=== PATIENT | female | born 1935 | race Caucasian/White ===

== ENCOUNTER 2016-11-08 20:57 | Emergency (ER) | payer MEDICARE ==
[2016-11-08 21:05] VITALS: RESP 18
[2016-11-08] MEDS ORDERED: DIPH,PERTUS(ACELL)TETVAC-LF 0.5 ML VIAL IM ONE (21:33)
--- NOTE | 2016-11-08 21:40 | ED ---
Fall HPI - General Chief Complaint: Fall Stated Complaint: Fall/Lac/ Hip Pain Time Seen by Provider: 11/08/16 21:11 Source: patient, RN notes reviewed Mode of arrival: wheelchair - History of Present Illness Initial Comments: Patient is a 81-year-old female presents to the emergency room for evaluation of fall injury. Patient states a few hours ago she tripped over a vine catching herself with her knees and her hands. Patient states she has laceration over her left hand. Patient states having 7 out of 10 pain. Patient states she's not sure last tetanus vaccine was. Patient also states after the fall she began having right hip pain. 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 Patient states the pain is on the lateral portion of her hip and over her right buttocks. Patient states she still able to get up and walk with assistance. Patient denies head trauma or loss of consciousness. Patient's daughter is present with patient. Patient's daughter also states that patient had a fall incident on Saturday. Patient states that she was stretching to get ready to go for a walk and lost her balance and fell over into her flower bed. Patient states she did hit the back of her head. Patient denies loss of consciousness. Patient denies neck pain, nausea, vomiting. Patient states she still the small lump on the left back of her head. Patient denies taking blood thinners. Patient's daughter states that patient has also been complaining of burning during urination throughout the past 2 weeks. Patient's daughter states giving patient [id number] Azo. Patient states her symptoms have been improving since she has been taking it. Patient denies fevers or chills. Patient denies nausea or vomiting. Patient denies chest pain or shortness of breath. Patient denies any other complaints at this time. - Related Data Home Medications Medication Instructions Recorded Confirmed Albuterol Nebulized [Ventolin 2.5 mg INHALATION RT-DAILY PRN 10/17/14 11/08/16 Nebulized] Fluticasone/Salmeterol [Advair 2 puff INHALATION RT-DAILY PRN 10/17/14 11/08/16 250-50 Diskus] Levothyroxine Sodium [Synthroid] 1 tab PO DAILY 10/17/14 11/08/16 Montelukast [Singulair] 10 mg PO DAILY 10/17/14 11/08/16 Calcium Citrate/Vitamin D3 1 tab PO DAILY 11/08/16 11/08/16 [Calcitrate + Vit D Caplet] Cranberry Fruit Concentrate [Azo 250 mg PO DAILY PRN 11/08/16 11/08/16 Cranberry] Ibandronate Sodium [Boniva] 150 mg PO Q30D 11/08/16 11/08/16 Multivitamins, Thera [Multivitamin 1 tab PO DAILY 11/08/16 11/08/16 (formulary)] [place]-3/Dha/Epa/Fish Oil [Fish Oil 1 cap PO DAILY 11/08/16 11/08/16 500 mg Softgel] Simvastatin [Zocor] 80 mg PO DAILY 11/08/16 11/08/16 Previous Rx's Medication Instructions Recorded HYDROcodone/APAP 5-325MG [[place] 1 tab PO Q6HR PRN #5 tab 11/08/16 5-325] Allergies Allergy/AdvReac Type Severity Reaction Status Date / Time latex AdvReac Rash/Hives Verified 11/08/16 22:02 Penicillins AdvReac Rash/Hives Verified 11/08/16 22:02 Sulfa (Sulfonamide AdvReac Rash/Hives Verified 11/08/16 22:02 Antibiotics) tree nut [Nut] AdvReac Rash/Hives Verified 11/08/16 22:02 Review of Systems ROS Statement: Those systems with pertinent positive or pertinent negative responses have been documented in the HPI. ROS Other: All systems not noted in ROS Statement are negative. Past Medical History Past Medical History: Hyperlipidemia, Thyroid Disorder History of Any Multi-Drug Resistant Organisms: None Reported Past Surgical History: Hysterectomy, Orthopedic Surgery Additional Past Surgical History / Comment(s): Right Hip replacement. Past Psychological History: No Psychological Hx Reported Smoking Status: Former smoker Past Alcohol Use History: None Reported Past Drug Use History: None Reported General Exam - General Exam Comments Initial Comments: sitting in exam room, no acute distress. Limitations: no limitations General appearance: alert, in no apparent distress Head exam: Present: atraumatic, normocephalic, normal inspection Eye exam: Present: normal appearance, PERRL, EOMI Pupils: Present: normal accommodation ENT exam: Present: normal exam Neck exam: Present: normal inspection, full ROM. Absent: tenderness, lymphadenopathy Respiratory exam: Present: normal lung sounds bilaterally. Absent: respiratory distress Cardiovascular Exam: Present: regular rate, normal rhythm, normal heart sounds Left Hand Wrist exam: Present: full ROM, laceration (2 cm laceration over the thenar eminence of the left hand.). Absent: tenderness Neuro motor exam: Present: wrist extension intact, thumb opposition intact, thumb IP flexion intact, thumb adduction intact, fingers 2-5 abduction intact Vascular: Present: normal capillary refill (capillary refill less than 2 seconds ), radial pulse (2+), ulnar pulse (2+) Right Hip exam: Present: normal inspection, full ROM, tenderness (tenderness on palpating over the lateral hip joint), external rotation, internal rotation. Absent: swelling, shortening Upper Leg exam: Present: normal inspection, full ROM. Absent: tenderness Knee exam: Present: abrasion Neurovascular tendon exam: Present: no vascular compromise. Absent: pulse deficit (2+ dorsal pedal and posterior tibial pulses), abnormal cap refill ( capillary refill is 2 seconds) Back exam: Present: normal inspection Neurological exam: Present: alert, oriented X3, CN II-XII intact Psychiatric exam: Present: normal affect, normal mood Skin exam: Present: warm, dry. Absent: rash Course Vital Signs 11/08/16 11/08/16 11/09/16 21:01 23:08 00:18 Temperature 97.1 F L 97.5 F L 97.5 F L Pulse Rate 80 76 76 Respiratory 18 18 18 Rate Blood Pressure 128/86 160/70 160/70 O2 Sat by Pulse 93 L 94 L 94 L Oximetry Procedures - Laceration Laceration #1 Consent Obtained: verbal consent Indication: laceration Site: other (left hand) Size (cm): 3 Description: linear Depth: simple, single layer Anesthetic Used: lidocaine 1% Anesthesia Technique: local infiltration Amount (mls): 2 Pre-repair: wound explored, irrigated extensively Type of Sutures: nylon Size of Sutures: 5-0 Number of Sutures: 6 Technique: simple, interrupted Patient Tolerated Procedure: well, no complications Medical Decision Making - Medical Decision Making Patient is a 81-year-old female since emergency room for evaluation of fall injury. Left hand laceration repaired sutures. Patient updated on her tetanus vaccine. Right hip/pelvis x-ray negative for any acute fractures or dislocations. Brain CT negative for any acute findings. Urinalysis negative for urinary tract infection. Patient advised to follow-up with primary care provider for reevaluation in 24-48 hours. Patient states she understands everything that was discussed with her. Return parameters discussed. Case discussed with Dr. Hansen. - Lab Data Lab Results 11/08/16 Range/Units 21:42 Urine Color Yellow Urine Appearance Cloudy H (Clear) Urine pH 6.5 (5.0-8.0) Ur Specific [place] 1.021 (1.001-1.035) Urine Protein Negative (Negative) Urine Glucose (UA) Negative (Negative) Urine Ketones Negative (Negative) Urine Blood Negative (Negative) Urine Nitrite Negative (Negative) Urine Bilirubin Negative (Negative) Urine Urobilinogen <2.0 (<2.0) mg/dL Ur Leukocyte Esterase Negative (Negative) Urine RBC <1 (0-5) /hpf Urine WBC 1 (0-5) /hpf Ur Squamous Epith Cells <1 (0-4) /hpf Amorphous Sediment Rare H (None) /hpf Urine Mucus Rare H (None) /hpf - Radiology Data Radiology results: report reviewed, image reviewed Disposition Clinical Impression: Fall, Contusion of right hip, Hand laceration Disposition: HOME SELF-CARE Condition: Good Instructions: Care For Your Stitches (ED), Laceration (ED), Fall Prevention for Older Adults (ED) Additional Instructions: Take ibuprofen as needed for pain. Take [place] as needed for severe pain. Do not soak the suture area in water. Clean suture area with a damp cloth. Please return in 7-10 days for suture removal. Please follow up with primary care provider in 1-2 days. If any new symptom arises or symptoms worsen, return to ER as soon as possible. Prescriptions: HYDROcodone/APAP 5-325MG [[place] 5-325] 1 tab PO Q6HR PRN #5 tab PRN Reason: Pain Referrals: Vera hSine DO [Primary Care Provider] - 1-2 days Time of Disposition: 23:48
[2016-11-08 22:01] LABS: Amorphous Sediment,Urine Rare /hpf; Appearance,Urine Cloudy (Clear); Bilirubin,Urine Negative (Negative); Glucose,Urine (UA) Negative (Negative); Ketones,Urine Negative (Negative); Leukocyte Esterase,Urine Negative (Negative); Mucus,Urine Rare /hpf; Nitrite,Urine Negative (Negative); PH, Urine 6.5 (5.0-8.0); Particle Count 2804; Protein,Urine Negative (Negative); RBC,Urine <1 /hpf (0-5); Specific Gravity,Urine 1.021 (1.001-1.035); Squamous Epithelial Cell,Urine <1 /hpf (0-4); UA Billing (MACRO vs. MICRO) MICRO; Urobilinogen,Urine <2.0 mg/dL (<2.0); WBC,Urine 1 /hpf (0-5)
--- NOTE | 2016-11-08 22:35 | CT ---
EXAM: CT Head Without Intravenous Contrast CLINICAL HISTORY: Pain TECHNIQUE: Axial computed tomography images of the head/brain without intravenous contrast. CTDI is 60.30 mGy and DLP is 954.5 mGy-cm. This CT exam was performed using one or more of the following dose reduction techniques: automated exposure control, adjustment of the mA and/or kV according to patient size, and/or use of iterative reconstruction technique. COMPARISON: No relevant prior studies available. FINDINGS: Brain: Chronic small vessel ischemic disease and senescent changes. No acute infarct, hemorrhage, mass or edema. Ventricles: Unremarkable. No ventriculomegaly. Bones/joints: Unremarkable. No acute fracture. Soft tissues: Unremarkable. Sinuses: Unremarkable as visualized. No acute sinusitis. Mastoid air cells: Unremarkable as visualized. No mastoid effusion. IMPRESSION: No acute findings. EXAM: CT Cervical Spine Without Intravenous Contrast CLINICAL HISTORY: Pain TECHNIQUE: Axial computed tomography images of the cervical spine without intravenous contrast. CTDI is 16.80 mGy and DLP is 328.30 mGy-cm. This CT exam was performed using one or more of the following dose reduction techniques: automated exposure control, adjustment of the mA and/or kV according to patient size, and/or use of iterative reconstruction technique. COMPARISON: No relevant prior studies available. FINDINGS: Vertebrae: No acute fracture. No traumatic malalignment. Discs/spinal canal/neural foramina: Multilevel degenerative changes. No spinal canal stenosis. Soft tissues: Unremarkable. Lung apices: Visualized lung apices demonstrates biapical pleural parenchymal scarring. IMPRESSION: No acute findings.
--- NOTE | 2016-11-08 22:48 | XR ---
EXAM: XR Right Hip With Pelvis When Performed, 1 View CLINICAL HISTORY: Pain TECHNIQUE: Frontal view of the right hip, with pelvis when performed. COMPARISON: Right hip x-ray dated 10/17/2014 FINDINGS: Bones/joints: No acute fracture or traumatic malalignment. Evidence of revision of the total right hip arthroplasty as compared to the prior. No acute fracture identified. Degenerative changes of the lumbar spine and left hip. Soft tissues: Unremarkable. IMPRESSION: 1. No acute fracture or traumatic malalignment. 2. Evidence of revision of the total right hip arthroplasty as compared to the prior. No acute fracture identified.
[2016-11-08 23:09] VITALS: BP 160/70; PULSE 76; TEMP 97.5
[2016-11-08] MEDS ORDERED: HYDROcodone/APAP 5-325MG 1 EACH TAB PO STA (23:11)
== END 2016-11-09 00:25 | disposition home or self-care (01) ==
LOC: EC 20:57
DX: S61.412A Laceration without foreign body of left hand, initial encounter (principal); S70.01XA Contusion of right hip, initial encounter; S80.219A Abrasion, unspecified knee, initial encounter; R22.0 Localized swelling, mass and lump, head; R30.0 Dysuria; E78.5 Hyperlipidemia, unspecified; E07.9 Disorder of thyroid, unspecified; Z87.891 Personal history of nicotine dependence; Z79.899 Other long term (current) drug therapy; Z88.0 Allergy status to penicillin; Z88.2 Allergy status to sulfonamides; Z91.018 Allergy to other foods; Z91.040 Latex allergy status; Z96.641 Presence of right artificial hip joint; Z23 Encounter for immunization; W18.09XA Striking against other object with subsequent fall, initial encounter; Y93.01 Activity, walking, marching and hiking
CPT/HCPCS: 12002; 70450; 72125; 73502; 81001; 90471; 90715; 99284

== ENCOUNTER → 2016-12-08 | Outpatient (CLI) | payer MEDICARE ==
--- NOTE | 2016-12-08 12:42 | MR ---
EXAMINATION TYPE: MR hip RT wo con DATE OF EXAM: 12/08/2016 12:32 PM COMPARISON: NONE HISTORY: LBP, rt hip pain S/P fall 1 mo ago TECHNIQUE: Multiplanar, multiecho imaging of the right hip is performed without IV contrast. FINDINGS: There is a right hip arthroplasty in place. This is causing severe geometric distortion thr ough the region of interest. The examination is nondiagnostic for the right hip. There is mild joint space loss involving the left hip. There is no evidence of avascular necrosis. No acute osseous lesion is seen. IMPRESSION: 1. THIS EXAMINATION IS NONDIAGNOSTIC IN THE REGION OF THE RIGHT HIP DUE TO GEOMETRIC DISTORTION FROM THE PATIENT'S RIGHT HIP ARTHROPLASTY. 2. EVIDENCE OF OSTEOARTHRITIS IN THE LEFT HIP.
--- NOTE | 2016-12-08 12:53 | MR ---
MR lumbar spine wo con LBP, rt hip pain S/P fall 1 mo ago Multiplanar, multiecho imaging of the lumbar spine was obtained without contrast on a 3 Juanita magnet. REFERENCE: Previous study dated 03/29/2014. FINDINGS: There is atrophy of the right iliopsoas complex as well as the right paraspinal musculatur e. Paraspinal soft tissues are otherwise unremarkable. There is a mild retrograde listhesis of L2 on L3. This is unchanged from previous. The remainder of t he vertebral body height and alignment are maintained. Cord signal is maintained. The conus ends normally at the level of the mid body of L1. At T12-L1, there is mild facet arthropathy. At L1-2, there is disc space loss. There is mild, bilateral intervertebral foraminal narrowing. There is a bilobed disc displacement. There are hypertrophic changes within the facets. There is mild tref oiling of the thecal sac. At L2-3, there is severe disc space loss. There is a mild retrograde listhesis. There is hypertrophic spondylosis both anteriorly and posteriorly. There is bilateral intervertebral foraminal narrowing. There is a diffuse disc displacement slightly eccentric towards the left. There is a left paracentral disc endplate complex which is mildly deforming the thecal sac and causing mild lateral recess steno sis on the left. There is capsulitis within the facets. At L3-4, there is disc space loss. There is mild, bilateral intervertebral foraminal narrowing. There is a broad-based disc endplate complex effacing the thecal sac. There are hypertrophic changes and c apsulitis in the facets. There is mild trefoiling of the thecal sac. At L4-5, there is severe disc space loss. There is bilateral intervertebral foraminal narrowing there hypertrophic changes in the facets. There is a diffuse disc displacement. There is mild trefoiling o f the thecal sac. At L5-S1, there is disc space loss. There is a diffuse disc displacement. This hypertrophic changes a nd capsulitis within the facets. There is mild right-sided intervertebral foraminal narrowing. IMPRESSION: 1. DIFFUSE DEGENERATIVE DISC DISEASE AND FACET ARTHROPATHY. 2. MULTILEVEL INTERVERTEBRAL FORAMINAL NARROWING. 3. MILD LATERAL RECESS STENOSIS ON THE LEFT, L2-3.
== END | disposition home or self-care (01) ==
LOC: RADMRIMAIN 11:26
PROVIDERS: ATTEND Nurse Practitioner Family
DX: M48.06 Spinal stenosis, lumbar region (principal); M99.73 Connective tissue and disc stenosis of intervertebral foramina of lumbar region; M51.16 Intervertebral disc disorders with radiculopathy, lumbar region; M46.96 Unspecified inflammatory spondylopathy, lumbar region; M16.12 Unilateral primary osteoarthritis, left hip; Z96.651 Presence of right artificial knee joint
CPT/HCPCS: 72148

== ENCOUNTER → 2017-01-30 | Outpatient (CLI) | payer MEDICARE ==
--- NOTE | 2017-01-31 09:45 | MM ---
Reason for exam: screening (asymptomatic). Last mammogram was performed 1 year and 3 months ago. History: Patient is postmenopausal. Took estrogen for 10 years beginning at age 56. Physical Findings: A clinical breast exam by your physician is recommended on an annual basis and results should be correlated with mammographic findings. MG 3D Screening Mammo W/Cad Bilateral CC and MLO view(s) were taken. Prior study comparison: November 14, 2015, bilateral MG screening mammo w CAD. November 04, 2014, bilateral MG screening mammo w CAD. There are scattered fibroglandular densities. No suspicious abnormality. ASSESSMENT: Negative, BI-RAD 1 RECOMMENDATION: Routine screening mammogram of both breasts in 1 year.
== END | disposition home or self-care (01) ==
LOC: RADMAMWWP 09:45
PROVIDERS: ATTEND Family Medicine
DX: Z12.31 Encounter for screening mammogram for malignant neoplasm of breast (principal)
CPT/HCPCS: 77063; G0202

== ENCOUNTER 2017-05-21 06:50 | Day surgery (SDC) | payer MEDICARE ==
[2017-05-14 15:20] VITALS: BMI 27.3
[2017-05-21 07:25] VITALS: RESP 16; TEMP 97.6
[2017-05-21] MEDS ORDERED: LACTATED RINGERS 1,000 ML IV ONE (07:35)
[2017-05-21] MEDS ORDERED: LIDOCAINE 1% 20 ML VIAL (10MG/ML) FOR IV START INTRADERMA ONE (07:36)
[2017-05-21] MEDS ORDERED: LACTATED RINGERS 1,000 ML IV SCH (07:45)
--- NOTE | 2017-05-21 08:02 | P.PCN ---
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 PROCEDURE DESCRIPTION: Patient presents for RIGHT SIDE ONLY L3-L4, L4-L5 and L5- S1 diagnostic medial branch blocks #2 under fluoroscopic guidance after one week 's worth of excellent relief from first procedure. The procedure is performed using fluoroscopic guidance during needle placement to assure proper position and maximize safety. ANESTHESIA: Local with 1% lidocaine; conscious sedation with Versed EBL: Minimal PROCEDURE INDICATION: Patient with lumbar facet arthropathy signs and symptoms and pain in right buttock, here for RIGHT diagnostic medial branch block #1. Pt does not take any blood thinning medications. PROCEDURE DESCRIPTION: The patient was seen and identified in the preoperative area. Risks, benefits, complications, and alternatives were discussed with the patient (including but not limited to incomplete pain relief, bleeding, infection, nerve damage, and allergies to medications), the patient agreed to proceed with the procedure and signed the consent after all questions were answered. Patient was taken to the OR and time out was completed to verify proper patient, position, laterality of pain, and allergies. Pt was placed in the prone position and a pillow was placed under the abdomen to reduce lumbar lordosis. The lumbosacral area was prepped and draped in the usual sterile fashion. Using oblique fluoroscopy, the eye of the "Donato dog" of right L4 vertebral body, which corresponds to the path of the medial branch originating from the level above, which is L3 in this case, was identified. Subsequently, a 22-gauge 3.5-inch spinal needle was inserted under fluoroscopic guidance toward the eye of the "Donato dog" of the right L4 vertebral body, corresponding to the junction of the superior articular process and the transverse process of the pedicle of the same level. After needle tip confirmation on lateral view and after negative aspiration for CSF and blood and without paresthesias, 1 mL of a 3 ml solution of 0.5% preservative-free bupivacaine and 40 mg Kenalog was injected. Subsequently the needle was withdrawn intact and the same procedure was repeated for the right L4, right L5 medial branches which together with right L3 medial branch correspond to the sensory innervation of the right L3-L4, L4-L5 , and L5-S1 facet joints. Needle was withdrawn intact after each injection. At the end of the procedure, the skin was cleansed and bandages were applied. COMPLICATIONS: None. DISPOSITION/PLAN: The patient taken to the recovery area after the procedure in a stable condition for observation. Patient was reexamined prior to discharge and there were no issues and she already had significant relief. Patient was discharged home, accompanied by an adult, after meeting discharged criteria. Discharge instructions were give to the patient by the staff. Patient was specifically instructed not to drive today and to rest for the rest of the day. We will plan for right lumbar RFA next visit.
[2017-05-21] MEDS ORDERED: IV FLUID CONTINUATION 1,000 ML IV ONE (08:15)
[2017-05-21 08:37] VITALS: BP 152/70; PULSE 69
--- NOTE | 2017-05-21 11:20 | FL ---
Fluoroscopy HISTORY: Pain 10 seconds fluoroscopy time supplied to the referring clinician. 2 intraoperative C-arm images docum ent the procedure. See dictated report from anesthesia.
== END 2017-05-21 08:50 | disposition home or self-care (01) ==
LOC: ORPAIN 06:50
PROVIDERS: ATTEND Anesthesiology
DX: M47.816 Spondylosis without myelopathy or radiculopathy, lumbar region (principal); I10 Essential (primary) hypertension; J45.909 Unspecified asthma, uncomplicated; M81.0 Age-related osteoporosis without current pathological fracture; Z88.0 Allergy status to penicillin; Z88.2 Allergy status to sulfonamides; Z91.040 Latex allergy status; Z91.018 Allergy to other foods; Z88.5 Allergy status to narcotic agent
CPT/HCPCS: 64493; 64494; 64495; J2250; J3301

== ENCOUNTER 2017-06-18 07:20 | Day surgery (SDC) | payer MEDICARE ==
[2017-06-10 15:57] VITALS: BMI 27.3
[2017-06-18 07:37] VITALS: RESP 16; TEMP 98.6
[2017-06-18] MEDS ORDERED: LACTATED RINGERS 1,000 ML IV ONE (07:41)
[2017-06-18] MEDS ORDERED: LIDOCAINE 1% 20 ML VIAL (10MG/ML) FOR IV START INTRADERMA ONE (07:42)
[2017-06-18] MEDS ORDERED: LACTATED RINGERS 1,000 ML IV SCH (07:45)
--- NOTE | 2017-06-18 08:41 | P.PCN ---
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 ANESTHESIA: 1% lidocaine plain; Conscious sedation with versed/fentanyl EBL: Minimal PROCEDURE INDICATION: The patient with low back pain secondary to lumbar arthropathy who had more than 50% relief of pain with previous diagnostic lumbar medial branch block with bupivacaine. Patient presents for right lumbar RFA today; no use of blood thinners. PROCEDURE DESCRIPTION / TECHNIQUE: The patient was seen and identified in the preoperative area. Risks, benefits, complications, and alternatives were discussed with the patient (including but not limited to incomplete pain relief , bleeding, infection, nerve damage, and allergies to medications), the patient agreed to proceed with the procedure and signed the consent after all questions were answered. Patient was taken to the OR and time out was completed to verify proper patient , position, laterality of pain, and allergies. Pt was placed in the prone position. IV was started. Vital signs remained stable throughout the procedure. A pillow was placed under the patients chest to decrease lordosis. The lumbosacral area was prepped and draped in the usual sterile fashion. Vital signs were closely monitored during the procedure. Conscious sedation was used during the procedure to decrease patients anxiety. Using AP and then oblique fluoroscopy, the eye of the Donato dog corresponding to the connection between the superior and transverse articular processes of right L3, L4, L5 and top of the sacrum were identified, marked, and localized with 1% lidocaine. Subsequently, a 18 gauge, 100-mm radiofrequency cannula with a 10-mm active tip was advanced guided by fluoroscopy to each of the eyes of the Donato dog at the levels of all four medial branches. Each site then underwent sensory testing at 50 Hz and 0 to 1 volt and motor testing at 2 Hz and 0 to 3 volt with local stimulation, but no radicular symptoms down the legs. Thereafter all four medial branch sites underwent radiofrequency thermocoagulation at 80 degrees Celsius for 90 seconds after injecting 0.5 ml of PF lidocaine 1%. After thermocoagulation, 1 ml of the block solution containing Kenalog 40 mg and 2 mL of preservative-free normal saline was injected at all four medial branch levels after negative aspiration of CSF and blood and with no paresthesias. Cannulas were retracted while injecting lidocaine 1% until the needles were removed. At the end of the procedure, the skin was cleansed and bandages were applied. COMPLICATIONS: No acute complications. DISPOSITION / PLANS: The patient was placed in a supine position and transferred to the recovery area in a stable condition for observation and was discharged from the recovery room after meeting discharge criteria. Home discharge instructions given to the patient by the staff. The patient was reexamined prior to discharge and there were no issues. The patient will schedule a follow up in the clinic in 2-4 weeks.
[2017-06-18] MEDS ORDERED: IV FLUID CONTINUATION 1,000 ML IV ONE (08:46)
[2017-06-18 09:05] VITALS: BP 127/67; PULSE 70
--- NOTE | 2017-06-18 10:01 | FL ---
Fluoroscopy HISTORY: Pain 15 seconds fluoroscopy time supplied to the referring clinician. 3 intraoperative C-arm images docum ent the procedure. See dictated report from anesthesia.
== END 2017-06-18 09:28 | disposition home or self-care (01) ==
LOC: ORPAIN 07:20
PROVIDERS: ATTEND Anesthesiology
DX: M47.816 Spondylosis without myelopathy or radiculopathy, lumbar region (principal); I10 Essential (primary) hypertension; J45.909 Unspecified asthma, uncomplicated; M81.0 Age-related osteoporosis without current pathological fracture; Z88.0 Allergy status to penicillin; Z88.2 Allergy status to sulfonamides; Z91.040 Latex allergy status; Z88.5 Allergy status to narcotic agent
CPT/HCPCS: 64635; 64636 ×2; J2250; J3301; J3010; 99152

== ENCOUNTER → 2017-09-04 | Outpatient (CLI) | payer MEDICARE ==
--- NOTE | 2017-09-04 20:01 | CT ---
EXAMINATION TYPE: CT chest wo con DATE OF EXAM: 09/04/2017 COMPARISON: 09/25/2011 HISTORY: Abnormal CXR per patient CT DLP: 242.8 mGycm. Automated Exposure Control for Dose Reduction was Utilized. TECHNIQUE: CT scan of the thorax is performed without IV contrast. FINDINGS: LUNGS: The lungs are grossly clear, there is no concerning parenchymal mass or nodule identified. T here is no pleural effusion or pneumothorax seen. The tracheobronchial tree is patent. There is a ca lcified nodule within the right upper lobe image 25. Measures 4 mm. Additional subpleural nodule righ t apex measuring 2 mm. Subsegmental areas of consolidation bilaterally are most typical atelectasis. Additional 2 mm nodule right lower lobe image 45 and 52. MEDIASTINUM: Lack of IV contrast is noted to limit evaluation for mediastinal and especially hilar ad enopathy. There are no definitive greater than 1 cm hilar or mediastinal lymph nodes. Heart is enlarg ed. No sizable pericardial effusion. Mild coronary artery calcification. OTHER: Large gallstone incidentally noted. Hypertrophic and degenerative changes of the spine are no jonathan. IMPRESSION: 1. There multiple less than 5 mm pulmonary nodules one of which is calcified and compatible with gran uloma. Other 2 are too small to characterize but likely present on the previous exam of 2011. 2. Large gallstone.
== END | disposition home or self-care (01) ==
LOC: RADCTMAIN 18:22
PROVIDERS: ATTEND Family Medicine
DX: R91.8 Other nonspecific abnormal finding of lung field (principal)
CPT/HCPCS: 71250

== ENCOUNTER → 2018-02-07 | Outpatient (CLI) | payer MEDICARE ==
--- NOTE | 2018-02-10 10:18 | MM ---
Reason for exam: screening (asymptomatic). Last mammogram was performed 1 year ago. History: Patient is postmenopausal. Took estrogen for 10 years beginning at age 56. Physical Findings: A clinical breast exam by your physician is recommended on an annual basis and results should be correlated with mammographic findings. MG 3D Screening Mammo W/Cad Bilateral CC and MLO view(s) were taken. Prior study comparison: January 30, 2017, bilateral MG 3d screening mammo w/cad. November 14, 2015, bilateral MG screening mammo w CAD. No significant changes when compared with prior studies. ASSESSMENT: Benign, BI-RAD 2 RECOMMENDATION: Routine screening mammogram of both breasts in 1 year.
== END | disposition home or self-care (01) ==
LOC: RADMAMWWP 12:19
PROVIDERS: ATTEND Family Medicine
DX: Z12.31 Encounter for screening mammogram for malignant neoplasm of breast (principal)
CPT/HCPCS: 77063; 77067

== ENCOUNTER → 2018-06-16 | Outpatient (CLI) | payer MEDICARE ==
--- NOTE | 2018-06-16 16:10 | BD ---
EXAMINATION TYPE: Axial Bone Density DATE OF EXAM: 06/16/2018 COMPARISON:2014 CLINICAL HISTORY: age related osteoporosis Height: 5'1 Weight: 166 FRAX RISK QUESTIONS: Secondary Osteoporosis: 3. Menopause before 45: y RISK FACTORS HISTORY OF: Surgery to Hip(right/: total rt hip 3 x When: 2016 Postmenopausal woman: y MEDICATIONS: Thyroid Medications: Which medication: Levothyroxine How Lon years Additional Medications: cholesterol, Additional History: EXAM MEASUREMENTS: Bone mineral densitometry was performed using the [employer] System. Bone mineral density as measured about the Lumbar spine is: ----- L1-L4(G/cm2): 0.951 T Score Values are as follows: ----- L2: -2.9 ----- L3: -2.1 ----- L4: -0.8 ----- L1-L4: -1.9 Bone mineral density has: Increased 1.2% since study of: 02/01/2015 Bone mineral density about the L hip (g/cm2): 0.831 T Score values are as follows: -----L Neck: -1.5 -----L Total: -1.4 Bone mineral density has: Decreased -0.8% since study of: 02/01/2015 IMPRESSION: Osteoporosis (T Score less than -2.5). There is increased fracture risk and therapy is usually indicated based on age. Re-Screen 1-2 years. NOTE: T-SCORE=SD OF THE YOUNG ADULT MEAN.
== END ==
LOC: RADBDWWP 10:22
PROVIDERS: ATTEND Family Medicine
DX: M81.0 Age-related osteoporosis without current pathological fracture (principal)
CPT/HCPCS: 77080

== ENCOUNTER → 2018-11-24 | Outpatient (CLI) | payer MEDICARE ==
--- NOTE | 2018-11-24 13:16 | US ---
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 Patient stated is taking Levot hyroxine. GLAND SIZE: Right Lobe: 3.5 x1.3 x 1.3 cm Overall Parenchyma: heterogeneous Left Lobe: 3.1 x 1.0 x 0.9 cm Overall Parenchyma: heterogeneous Isthmus Thickness: 0.3 cm NODULES RIGHT: # of nodules measured on right: 0 LEFT: # of nodules measured on left: 0 ISTHMUS: # of nodules measured in the isthmus: 0 Bilateral neck scanned: no evidence of lymphadenopathy. IMPRESSION: Nonspecific glandular heterogeneity. No evidence of solid or cystic nodule.
== END | disposition home or self-care (01) ==
LOC: RADUSWWP 09:13
PROVIDERS: ATTEND Family Medicine
DX: E01.0 Iodine-deficiency related diffuse (endemic) goiter (principal)
CPT/HCPCS: 76536

== ENCOUNTER → 2019-03-06 | Outpatient (CLI) | payer MEDICARE ==
--- NOTE | 2019-03-10 08:16 | MM ---
Reason for exam: screening (asymptomatic). Last mammogram was performed 1 year and 1 month ago. History: Patient is postmenopausal. Took estrogen for 10 years beginning at age 56. Physical Findings: A clinical breast exam by your physician is recommended on an annual basis and results should be correlated with mammographic findings. MG 3D Screening Mammo W/Cad Bilateral CC and MLO view(s) were taken. Prior study comparison: February 07, 2018, bilateral MG 3d screening mammo w/cad. January 30, 2017, bilateral MG 3d screening mammo w/cad. There are scattered fibroglandular densities. Focal asymmetry anterior left breast is unchanged. No significant changes when compared with prior studies. ASSESSMENT: Negative, BI-RAD 1 RECOMMENDATION: Routine screening mammogram of both breasts in 1 year.
== END | disposition home or self-care (01) ==
LOC: RADMAMWWP 12:35
PROVIDERS: ATTEND Family Medicine
DX: Z12.31 Encounter for screening mammogram for malignant neoplasm of breast (principal)
CPT/HCPCS: 77063; 77067

== ENCOUNTER 2020-09-11 09:29 | Emergency (ER) | payer MEDICARE ==
[2020-09-11 09:35] VITALS: RESP 16; TEMP 98.2
--- NOTE | 2020-09-11 09:40 | ED ---
Extremity Problem HPI - General Chief complaint: Extremity Problem,Nontraumatic Stated complaint: L knee pain Time Seen by Provider: 09/11/20 09:32 Source: patient, EMS, RN notes reviewed Mode of arrival: EMS Limitations: physical limitation - History of Present Illness Initial comments: This is a 85-year-old female presents emergency Department chief complaint of left leg swelling. Patient states that she had left knee replacement by surgeon to E[facility] Styles. Patient states that they noticed increasing swelling no increase in pain no fevers or chills no drainage from the site. Patient was sent in rule out DVT no history DVT denies chest pain shortness breath no other complaints. - Related Data Home Medications Medication Instructions Recorded Confirmed Albuterol Nebulized [Ventolin 2.5 mg INHALATION RT-DAILY PRN 10/17/14 06/18/17 Nebulized] Fluticasone/Salmeterol [Advair 2 puff INHALATION RT-DAILY PRN 10/17/14 06/18/17 250-50 Diskus] Montelukast [Singulair] 10 mg PO HS 10/17/14 06/18/17 Ibandronate Sodium [Boniva] 150 mg PO Q30D 11/08/16 06/18/17 Atorvastatin [Lipitor] 80 mg PO DAILY 04/15/17 06/18/17 HYDROcodone/APAP 5-325MG [[place] 1 tab PO BID 04/15/17 06/18/17 5-325] Levothyroxine Sodium 200 mcg PO DAILY 04/15/17 06/18/17 Meloxicam 1 tab PO DAILY 04/15/17 06/18/17 Allergies Allergy/AdvReac Type Severity Reaction Status Date / Time latex AdvReac Rash/Hives Verified 06/18/17 07:33 Penicillins AdvReac Rash/Hives Verified 06/18/17 07:33 Sulfa (Sulfonamide AdvReac Rash/Hives Verified 06/18/17 07:33 Antibiotics) tramadol AdvReac Unknown Verified 06/18/17 07:33 tree nut [Nut] AdvReac Rash/Hives Verified 06/18/17 07:33 Review of Systems ROS Statement: Those systems with pertinent positive or pertinent negative responses have been documented in the HPI. ROS Other: All systems not noted in ROS Statement are negative. Past Medical History Past Medical History: Asthma, Hyperlipidemia, Thyroid Disorder History of Any Multi-Drug Resistant Organisms: None Reported Past Surgical History: Hysterectomy, Orthopedic Surgery Additional Past Surgical History / Comment(s): Right Hip replacement x 2, pain procedures. Past Anesthesia/Blood Transfusion Reactions: No Reported Reaction Past Psychological History: No Psychological Hx Reported Smoking Status: Never smoker Past Alcohol Use History: None Reported Past Drug Use History: None Reported General Exam Limitations: no limitations General appearance: alert, in no apparent distress Head exam: Present: atraumatic, normocephalic, normal inspection Eye exam: Present: normal appearance, PERRL, EOMI. Absent: scleral icterus, conjunctival injection, periorbital swelling Respiratory exam: Present: normal lung sounds bilaterally. Absent: respiratory distress, wheezes, rales, rhonchi, stridor Cardiovascular Exam: Present: regular rate, normal rhythm, normal heart sounds. Absent: systolic murmur, diastolic murmur, rubs, gallop, clicks Extremities exam: Present: calf tenderness, other (Left leg there are palpable pulses equal, moderate leg swelling and mild erythema there is no localized erythema or drainage from incision site of the left knee narcisa are in place clean and dry) Neurological exam: Present: alert, oriented X3 Skin exam: Present: warm, dry, intact, normal color. Absent: rash Course Vital Signs 09/11/20 09:31 Temperature 98.2 F Pulse Rate 75 Respiratory 16 Rate Blood Pressure 137/72 O2 Sat by Pulse 95 Oximetry Medical Decision Making - Medical Decision Making Ultrasound does not show evidence of acute DVT. Patient has complex fluid collection unprompted region most likely from postsurgery. Patient be discharged back [facility]. Disposition Clinical Impression: Left leg swelling Disposition: HOME SELF-CARE Condition: Stable Instructions (If sedation given, give patient instructions): Leg Edema (ED) Additional Instructions: Elevate and use compression stockings.Please return to the Emergency Department if symptoms worsen or any other concerns. Is patient prescribed a controlled substance at d/c from ED?: No Referrals: Vera Shine DO [Primary Care Provider] - 1-2 days Time of Disposition: 11:29
--- NOTE | 2020-09-11 10:41 | US ---
EXAMINATION TYPE: US venous doppler duplex LE LT DATE OF EXAM: 09/11/2020 10:31 AM COMPARISON: NONE CLINICAL HISTORY: pain. Left leg edema SIDE PERFORMED: Left TECHNIQUE: The lower extremity deep venous system is examined utilizing real time linear array sonog jan with graded compression, doppler sonography and color-flow sonography. VESSELS IMAGED: Common Femoral Vein Deep Femoral Vein Greater Saphenous Vein * Femoral Vein Popliteal Vein Small Saphenous Vein * Proximal Calf Veins (* superficial vessels) Left Leg: Negative for DVT Complex collection left pop fossa measures 5.9 x 1.9 x 3.3 cm. IMPRESSION: 1. No deep venous thrombosis left lower extremity ultrasound. 2. Left popliteal complex collection. Consider MRI for additional evaluation
[2020-09-11 12:07] VITALS: BP 138/72; PULSE 86
== END 2020-09-11 12:06 | disposition home or self-care (01) ==
LOC: EC 09:29
DX: M79.89 Other specified soft tissue disorders (principal); M25.562 Pain in left knee; L53.9 Erythematous condition, unspecified; E78.5 Hyperlipidemia, unspecified; Z88.0 Allergy status to penicillin; Z79.51 Long term (current) use of inhaled steroids; Z79.1 Long term (current) use of non-steroidal anti-inflammatories (NSAID); Z96.652 Presence of left artificial knee joint
CPT/HCPCS: 99284

== ENCOUNTER → 2021-03-02 | Outpatient (CLI) | payer MEDICARE ==
--- NOTE | 2021-03-06 10:22 | MM ---
Reason for exam: screening (asymptomatic). Last mammogram was performed 2 years ago. History: Patient is postmenopausal. Family history of breast cancer in daughter. Took estrogen for 10 years beginning at age 56. Physical Findings: A clinical breast exam by your physician is recommended on an annual basis and results should be correlated with mammographic findings. MG 3D Screening Mammo W/Cad Bilateral CC and MLO view(s) were taken. Prior study comparison: March 06, 2019, bilateral MG 3d screening mammo w/cad. February 07, 2018, bilateral MG 3d screening mammo w/cad. There are scattered fibroglandular densities. No significant changes when compared with prior studies. ASSESSMENT: Negative, BI-RAD 1 RECOMMENDATION: Routine screening mammogram of both breasts in 1 year.
== END | disposition home or self-care (01) ==
LOC: RADMAMWWP 10:36
PROVIDERS: ATTEND Family Medicine
DX: Z12.31 Encounter for screening mammogram for malignant neoplasm of breast (principal); Z80.3 Family history of malignant neoplasm of breast
CPT/HCPCS: 77063; 77067

== ENCOUNTER → 2023-04-02 | Outpatient (CLI) | payer MEDICARE ==
--- NOTE | 2023-04-02 21:16 | US ---
EXAMINATION TYPE: US venous doppler duplex LE BI DATE OF EXAM: 04/02/2023 1:20 PM COMPARISON: US 2020 CLINICAL INDICATION: Female, 88 years old with history of R60.0 LOCALIZED EDEMA BLE; Bilateral leg sw elling SIDE PERFORMED: Bilateral TECHNIQUE: The lower extremity deep venous system is examined utilizing real time linear array sonog jan with graded compression, doppler sonography and color-flow sonography. VESSELS IMAGED: Common Femoral Vein Deep Femoral Vein Greater Saphenous Vein * Femoral Vein Popliteal Vein Small Saphenous Vein * Proximal Calf Veins (* superficial vessels) Right Leg: Appears negative for DVT Left Leg: Appears negative for DVT IMPRESSION: 1. Bilateral lower extremity ultrasound negative for deep venous thrombosis.
== END | disposition home or self-care (01) ==
LOC: RADUSWWP 12:55
PROVIDERS: ATTEND Family Medicine
DX: R60.0 Localized edema (principal)
CPT/HCPCS: 93970